=== PATIENT | female | born 1995 | race Caucasian/White ===

== ENCOUNTER 2021-12-18 05:08 | Inpatient (IN) | payer OTHER ==
[2021-12-18] MEDS ORDERED: ELECTROLYTE-148 SOLN 500 ML IV ONE (05:40)
[2021-12-18] MEDS: ELECTROLYTE-148 SOLN 1,000 ML IV SCH ×2 (06:10→09:59)
[2021-12-18 06:11] VITALS: BMI 32.1
[2021-12-18 06:28] LABS: BASO % 0.6 % (0-2.0); EOS % 0.4 % (0-4.5); HEMATOCRIT 40.6 % (32.4-45.2); HEMOGLOBIN 12.8 GM/dL (10.7-15.3); MCH 27.3 pg (25.7-33.7); MCHC 31.5 g/dl (32.0-36.0); MEAN CELL VOLUME 86.7 fl (80-96); MEAN PLT VOLUME 11.2 fl (7.5-11.1); MONO % 6.2 % (3.8-10.2); NEUT % 69.8 % (42.8-82.8); PLATELET COUNT 159 10^3/uL (134-434); RBC 4.69 M/mm3 (3.60-5.2); WHITE BLOOD COUNT 13.2 K/mm3 (4.0-10.0)
[2021-12-18] MEDS ORDERED: BUTORPHANOL TARTRATE 1 MG/ML VIAL IVPB ONE (06:30)
[2021-12-18] MEDS ORDERED: PROMETHAZINE HCL 25 MG/1 ML VIAL IVPB ONE (06:30)
[2021-12-18] MEDS ORDERED: PROMETHAZINE HCL 25 MG/1 ML VIAL ONE (06:33)
[2021-12-18] MEDS ORDERED: BUTORPHANOL TARTRATE 2 MG/ML VIAL ONE (06:33)
[2021-12-18 06:36] LABS: INR 0.92 (0.83-1.09); PROTHROMBIN TIME (PATIENT) 10.6 SEC (9.7-13.0)
[2021-12-18 06:38] LABS: ACTIVATED PTT 26.3 SECONDS (25.2-36.5)
[2021-12-18 06:46] LABS: CALCIUM 9.6 mg/dL (8.5-10.1)
[2021-12-18 06:47] LABS: BLOOD UREA NITROGEN 9.5 mg/dL (7-18)
[2021-12-18 06:50] LABS: CREATININE 0.8 mg/dL (0.55-1.3)
[2021-12-18] MEDS ORDERED: FENTANYL/BUPIVACAINE/NS/PF - PCEA - 50 ML DISP.SYRIN EP ONE ×2 (08:59→12:51)
[2021-12-18] MEDS ORDERED: NALOXONE HCL 0.4 MG/ML VIAL IVPUSH PRN (09:47)
[2021-12-18] MEDS ORDERED: FENTANYL/BUPIVACAINE/NS/PF - PCEA - 50 ML DISP.SYRIN EP SCH (10:00)
[2021-12-18] MEDS ORDERED: OXYTOCIN 30 UNITS in 0.9% NS 30 UNIT/500 ML INFUS.BAG IVPB ONE (13:15)
[2021-12-18] MEDS ORDERED: OXYTOCIN 30 UNITS in 0.9% NS 30 UNIT/500 ML INFUS.BAG IVPB SCH (13:30)
[2021-12-18] MEDS ORDERED: OXYTOCIN 20 UNITS in 0.9% NS 20 UNIT/1,000 ML INFUS.BAG IV ONE (15:30)
[2021-12-18] MEDS ORDERED: BENZOCAINE 28 GM HEMORRHOIDAL OINTMENT TP PRN (17:29)
[2021-12-18] MEDS ORDERED: BISACODYL 10 MG SUPP.RECT RC PRN (17:29)
[2021-12-18] MEDS ORDERED: oxyCODONE HCL 5 MG TABLET PO PRN (17:29)
[2021-12-18] MEDS ORDERED: ACETAMINOPHEN 325 MG TABLET (FP) PO PRN (17:29)
[2021-12-18] MEDS ORDERED: METHYLERGONOVINE MALEATE 0.2 MG/1 ML AMP IM PRN (17:29)
[2021-12-18] MEDS ORDERED: WITCH HAZEL 50% (TUCKS) 40 PAD/JAR PAD TP PRN (17:29)
[2021-12-18] MEDS ORDERED: BENZOCAINE 20% 57 GM BOTTLE TP PRN (17:29)
[2021-12-18] MEDS ORDERED: OXYTOCIN 20 UNITS in 0.9% NS 20 UNIT/1,000 ML INFUS.BAG IV SCH (17:30)
[2021-12-18 18:13] LABS: CORD BASE EXCESS -8.6 mmol/L (0-2); CORD HCO3 18.9 mmHg (20-29); CORD PCO2 46.4 mmHg (30-78); CORD pH 7.228 (7.14-7.44)
[2021-12-18] MEDS: IBUPROFEN 600 MG TABLET (FP) PO PRN (22:02)
[2021-12-19 08:34] LABS: BASO % 0.4 % (0-2.0); EOS % 0.3 % (0-4.5); HEMATOCRIT 28.8 % (32.4-45.2); HEMOGLOBIN 9.3 GM/dL (10.7-15.3); LYMPH % 24.8 % (8-40); MCH 28.2 pg (25.7-33.7); MCHC 32.2 g/dl (32.0-36.0); MEAN CELL VOLUME 87.6 fl (80-96); MEAN PLT VOLUME 10.6 fl (7.5-11.1); MONO % 8.2 % (3.8-10.2); NEUT % 66.3 % (42.8-82.8); PLATELET COUNT 129 10^3/uL (134-434); RBC 3.29 M/mm3 (3.60-5.2); WHITE BLOOD COUNT 13.5 K/mm3 (4.0-10.0)
[2021-12-19] MEDS: IBUPROFEN 600 MG TABLET (FP) PO PRN (16:38)
[2021-12-19] MEDS ORDERED: SENNOSIDES/DOCUSATE COMBO (SENNA PLUS) TABLET (UD) PO PRN (22:00)
[2021-12-19 22:32] VITALS: RESP 16; TEMP 98
[2021-12-20 09:40] VITALS: BP 116/66; PULSE 107
== END 2021-12-20 12:40 | disposition home or self-care (01) | DRG 560 ==
LOC: JDEL 05:08 → JLDR 05:30 → J3W 20:13 → UNDODISIN 12-20 12:40
PROVIDERS: ADMIT Internal Medicine; ATTEND Internal Medicine
PROC: 10E0XZZ Delivery of Products of Conception, External Approach (ICD-10-PCS; principal; 2021-12-18)
PROC: 0HQ9XZZ Repair Perineum Skin, External Approach (ICD-10-PCS; 2021-12-18)
DX: O42.02 Full-term premature rupture of membranes, onset of labor within 24 hours of rupture (principal); O70.0 First degree perineal laceration during delivery; Z3A.40 40 weeks gestation of pregnancy; Z37.0 Single live birth
CPT/HCPCS: 36415; 36600; 59025; 59409; 80048; 82803; 85025; 85610; 85730; 86780; 86850; 86900; 86901; C9803-CS; U0003; U0005